=== PATIENT | female | born 1990 | race American Indian/Alaskan Native ===

== ENCOUNTER 2019-08-16 08:18 | Emergency (ER) | payer SELFPAY ==
[2019-08-16 08:31] VITALS: BP 150/91
--- NOTE | 2019-08-16 08:54 | Emergency Department Report ---
ED ENT HPI - General Chief complaint: Upper Respiratory Infection Stated complaint: POSS STREP THROAT/BODY ACHE Time Seen by Provider: 08/16/19 08:45 Source: patient Mode of arrival: Ambulatory Limitations: No Limitations - History of Present Illness MD complaint: sore throat -: Gradual Location: throat Severity: mild, moderate Consistency: constant Improves with: none Worsens with: none Associated Symptoms: sore throat. denies: cough, gum swelling, discharge from ear, rhinorrhea - Related Data Previous Rx's Medication Instructions Recorded Last Taken Type Ondansetron [Zofran Odt] 4 mg PO Q4H PRN #15 tab.rapdis 04/03/15 Unknown Rx Pantoprazole [Protonix TAB] 40 mg PO QDAY #60 tablet 04/03/15 Unknown Rx Allergies Allergy/AdvReac Type Severity Reaction Status Date / Time pineapple Allergy Anaphylaxis Verified 08/16/19 08:20 psyllium [From Metamucil] Allergy Anaphylaxis Verified 08/16/19 08:20 ED Dental HPI - General Chief complaint: Upper Respiratory Infection Stated complaint: POSS STREP THROAT/BODY ACHE Time Seen by Provider: 08/16/19 08:45 Source: patient Mode of arrival: Ambulatory Limitations: No Limitations - Related Data Previous Rx's Medication Instructions Recorded Last Taken Type Ondansetron [Zofran Odt] 4 mg PO Q4H PRN #15 tab.rapdis 04/03/15 Unknown Rx Pantoprazole [Protonix TAB] 40 mg PO QDAY #60 tablet 04/03/15 Unknown Rx Allergies Allergy/AdvReac Type Severity Reaction Status Date / Time pineapple Allergy Anaphylaxis Verified 08/16/19 08:20 psyllium [From Metamucil] Allergy Anaphylaxis Verified 08/16/19 08:20 ED Review of Systems ROS: Stated complaint: POSS STREP THROAT/BODY ACHE Other details as noted in HPI Comment: All other systems reviewed and negative ED Past Medical Hx - Past Medical History Previous Medical History?: Yes Hx Hypertension: Yes Hx GERD: Yes Hx Headaches / Migraines: Yes Hx Asthma: Yes Additional medical history: h-pylori. Graves Disease - Surgical History Past Surgical History?: Yes Additional Surgical History: thyroid removed - Social History Smoking Status: Current Every Day Smoker Substance Use Type: Alcohol - Medications Home Medications: Home Medications Medication Instructions Recorded Confirmed Last Taken Type Ondansetron [Zofran Odt] 4 mg PO Q4H PRN #15 tab.rapdis 04/03/15 Unknown Rx Pantoprazole [Protonix TAB] 40 mg PO QDAY #60 tablet 04/03/15 Unknown Rx ED Physical Exam - General Limitations: No Limitations General appearance: alert, in no apparent distress - Head Head exam: Present: atraumatic, normocephalic - Eye Eye exam: Present: normal appearance, PERRL, EOMI Pupils: Present: normal accommodation - ENT ENT exam: Present: mucous membranes moist, other (swelling to the left tonsillar region with exudate noted. Tongue and uvula are midline airway patent no drooling. No abscess present) - Neck Neck exam: Present: normal inspection - Respiratory Respiratory exam: Present: normal lung sounds bilaterally. Absent: respiratory distress - Cardiovascular Cardiovascular Exam: Present: regular rate, normal rhythm. Absent: systolic murmur, diastolic murmur, rubs, gallop - GI/Abdominal GI/Abdominal exam: Present: soft, normal bowel sounds - Extremities Exam Extremities exam: Present: normal inspection - Back Exam Back exam: Present: normal inspection - Neurological Exam Neurological exam: Present: alert, oriented X3 - Psychiatric Psychiatric exam: Present: normal affect, normal mood - Skin Skin exam: Present: warm, dry, intact, normal color. Absent: rash ED Course Vital Signs 08/16/19 08:29 Temperature 98.4 F Pulse Rate 101 H Respiratory 20 Rate Blood Pressure 150/91 O2 Sat by Pulse 96 Oximetry ED Medical Decision Making - Medical Decision Making 28-year-old obese white female past medical history of Graves' disease and hypertension presents emergency department complaining of abdominal pain. And dysphagia due to pain. No history of immunocompromise. Nontoxic appearance.Patient euvolemic with no trismus. No airway compromise. Able to tolerate PO. Given History and Exam I have a suspicion for strep throat however a low suspicion for this presentation being caused by PHLEBOTOMIST, RPA, Ludwigs, Epiglottitis or Bacterial Tracheitis, EBV, acute HIV, Plan is comfortable with Bicillin and Decadron and have her to follow-up in 48 hours for reevaluation. Critical care attestation.: If time is entered above; I have spent that time in minutes in the direct care of this critically ill patient, excluding procedure time. ED Disposition Clinical Impression: Exudative pharyngitis Disposition: DC- TO HOME OR SELFCARE Is pt being admited?: No Does the pt Need Aspirin: No Condition: Stable Instructions: Pharyngitis (ED), Strep Throat (ED) Referrals: [facility] [Provider Group] - 3-5 Days
[2019-08-16] MEDS ORDERED: PENICILLIN G BENZATHINE 1.2 MILLION UNIT/2 ML INJ IM STA (08:57)
[2019-08-16] MEDS ORDERED: dexAMETHasone 4 MG/ML VIAL PO ONE (08:57)
== END 2019-08-16 09:32 | disposition home or self-care (01) ==
LOC: ED 08:18
DX: J02.9 Acute pharyngitis, unspecified (principal); I10 Essential (primary) hypertension; K21.9 Gastro-esophageal reflux disease without esophagitis; G43.909 Migraine, unspecified, not intractable, without status migrainosus; J45.909 Unspecified asthma, uncomplicated; F17.200 Nicotine dependence, unspecified, uncomplicated; Z91.018 Allergy to other foods; Z79.899 Other long term (current) drug therapy; Z88.8 Allergy status to other drugs, medicaments and biological substances
CPT/HCPCS: 96372; 99282; J0561; J1100

== ENCOUNTER 2021-03-26 21:34 | Emergency (ER) | payer OTHER ==
[2021-03-27] MEDS ORDERED: traMADol 50 MG TAB PO ONE (06:33)
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
[2021-03-27] MEDS ORDERED: IBUPROFEN 800 MG TAB PO ONE (08:47)
[2021-03-27 09:07] VITALS: BP 133/96
== END 2021-03-27 09:07 | disposition home or self-care (01) ==
LOC: ED 21:34
DX: M79.601 Pain in right arm (principal); M25.571 Pain in right ankle and joints of right foot; M79.18 Myalgia, other site; I10 Essential (primary) hypertension; K21.9 Gastro-esophageal reflux disease without esophagitis; G43.909 Migraine, unspecified, not intractable, without status migrainosus; J45.909 Unspecified asthma, uncomplicated; F17.200 Nicotine dependence, unspecified, uncomplicated; Z79.899 Other long term (current) drug therapy; Z98.890 Other specified postprocedural states; Z88.8 Allergy status to other drugs, medicaments and biological substances; Z91.018 Allergy to other foods; V49.49XA Driver injured in collision with other motor vehicles in traffic accident, initial encounter; Y92.410 Unspecified street and highway as the place of occurrence of the external cause; Y93.89 Activity, other specified; Y99.8 Other external cause status